=== PATIENT | male | born 1995 | race Hispanic/Latino ===

== ENCOUNTER 2019-10-07 20:55 | Emergency (ER) | payer MEDICAID ==
[2019-10-07 22:11] VITALS: BP 123/58
--- NOTE | 2019-10-07 23:12 | XRay Report ---
LEFT SHOULDER, 3 VIEWS 10/07/2019 INDICATION / CLINICAL INFORMATION: Left shoulder pain and swelling. COMPARISON: None available. FINDINGS: No fracture or dislocation. Soft tissue calcification is seen in the area of the biceps tendon. Signer Name: Khanh Hart MD Signed: 10/07/2019 11:07 PM Workstation Name: [id number]
[2019-10-08] MEDS ORDERED: IBUPROFEN 400 MG TAB PO ONE (00:31)
[2019-10-08] MEDS ORDERED: ACETAMINOPHEN 500 MG TAB PO ONE (00:31)
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
== END 2019-10-08 01:05 | disposition home or self-care (01) ==
LOC: ED 20:55
DX: S43.402A Unspecified sprain of left shoulder joint, initial encounter (principal); F17.200 Nicotine dependence, unspecified, uncomplicated; F12.10 Cannabis abuse, uncomplicated; V19.9XXA Pedal cyclist (driver) (passenger) injured in unspecified traffic accident, initial encounter; Y93.89 Activity, other specified; Y92.89 Other specified places as the place of occurrence of the external cause; Y99.8 Other external cause status
CPT/HCPCS: 99283

== ENCOUNTER 2019-11-06 22:16 | Emergency (ER) | payer MEDICAID ==
[2019-11-06 23:47] LABS: Basophils # (Auto) 0.1 K/mm3 (0.0-0.1); Basophils % (Auto) 0.6 % (0.0-1.8); Eosinophils # (Auto) 0.2 K/mm3 (0.0-0.4); Eosinophils % (Auto) 0.9 % (0.0-4.3); Hemoglobin 14.4 gm/dl (11.8-15.2); Lymphocytes # (Auto) 2.8 K/mm3 (1.2-5.4); Lymphocytes % (Auto) 16.5 % (13.4-35.0); Mean Corpuscular HGB Conc 34 % (32-34); Mean Corpuscular Volume 88 fl (84-94); Monocytes # (Auto) 1.6 K/mm3 (0.0-0.8); Monocytes % (Auto) 9.6 % (0.0-7.3); Platelet Count 363 K/mm3 (140-440); Red Blood Count 4.77 M/mm3 (3.65-5.03); Red Cell Distribution Width 14.6 % (13.2-15.2)
[2019-11-06 23:58] LABS: Alanine Aminotransferase 9 units/L (7-56); Albumin 3.6 g/dL (3.9-5); BUN/Creatinine Ratio 10; Blood Urea Nitrogen 10 mg/dL (9-20); Calcium 9.2 mg/dL (8.4-10.2); Hemolysis Index 30
[2019-11-07] MEDS ORDERED: KETOROLAC 30 MG/1 ML INJ IV ONE (00:35)
[2019-11-07] MEDS ORDERED: dexAMETHasone 20 MG/5 ML VIAL IV ONE (00:35)
[2019-11-07] MEDS ORDERED: SODIUM CHLORIDE 0.9% 1000 ML 1,000 ML IV ONE (00:36)
--- NOTE | 2019-11-07 02:27 | Cat Scan Report ---
CT NECK WITH INTRAVENOUS CONTRAST AND MULTIPLANAR RECONSTRUCTION CLINICAL HISTORY: Sore throat, difficulty swallowing TECHNIQUE: 3.75 mm thick contiguous axial scans were obtained from the skull base down to the aortic arch during intravenous contrast administration. In addition to evaluation of axial source images sagittal and c oronal multiplanar reconstructions were produced and reviewed for this report. Contrast dose report: Omnipaque 300: 100 mL administered intravenously. FINDINGS: There is asymmetrical enlargement of the left palatine tonsil. Subtle areas of decreased attenuation are seen within the tonsil. Possibility of phlegmon versus early tonsillar abscess cannot be excluded . There is mild rightward deviation of the airway in this location. The caliber of the airway remains adequate at this time. No additional abnormalities are seen along the course of the airway. Hypophar ynx, larynx and visualized portions of the subglottic airway all have an unremarkable appearance. Reactive lymph nodes are demonstrated in level 2 bilaterally, left larger than right. No abnormalities are seen in evaluation of the oral cavity and tongue. The floor the mouth has a norm al appearance. The parotid and submandibular salivary glands have a normal appearance. Evaluation of the nasal cavity reveals no abnormality. The visualized paranasal sinuses are free from inflammatory mucosal disease. Portions of the ethmoid air cells and the entirety of the frontal sinu ses are excluded. Evaluation of the visualized portions of the orbits reveals no abnormality. The thyroid gland is normal in size and homogeneous in attenuation. No focal thyroid lesions are iden tified. Evaluation of the cervical spine reveals no significant abnormality. Normal alignment is maintained. No significant degenerative changes are identified. Evaluation of the lung apices reveals no abnormality. There is no indication of lung nodule or infilt rate. The visualized portions of the superior mediastinum have an unremarkable appearance. Enhancement of normal vascular structures is demonstrated. No areas of abnormal contrast enhancement are identified. IMPRESSION: 1. Asymmetrical enlargement of the left palatine tonsil where phlegmon versus early tonsillar abscess is suspected. 2. Reactive lymphadenopathy is demonstrated involving level [address] All [address] imaging studies performed at this facility utilize dose modulation, iterative reconstruction o r weight based dosing, if appropriate, to obtain the lowest achievable radiation dose. Signer Name: Kirk Barber MD Signed: 11/07/2019 2:23 AM Workstation Name: [id number]
--- NOTE | 2019-11-07 03:22 | Emergency Department Report ---
ED General Adult HPI - General Chief complaint: Sore Throat Stated complaint: SORE THROAT Source: patient Mode of arrival: Ambulatory Limitations: No Limitations - History of Present Illness Initial comments: Patient is a 24-year-old white male with a history of bipolar disorder and ADHD who presents to the ED with complaint of acute onset persistent severe sore throat with dysphagia, diffuse body aches and pains, headache, chills and fever for the last 3 days worse in the last 24 hours. Patient states that the sore throat is worse with any swallowing. Patient denies dizziness, syncope, dental pain, nasal and sinus congestion, cough, chest pain or shortness of breath, n ausea and vomiting or diarrhea and abdominal pain. Patient states that no one else at home is had similar symptoms. MD Complaint: sore throat; dysphagia -: Sudden, days(s) (3) Location: mouth Radiation: non-radiation Severity scale (0 -10): 6 Quality: aching, sharp Consistency: constant Improves with: none Worsens with: eating Associated Symptoms: denies other symptoms. denies: confusion, chest pain, cough, diaphoresis, fever/chills, headaches, loss of appetite, malaise, nausea/vomiting, rash, seizure, shortness of breath, syncope, weakness Treatments Prior to Arrival: NSAID - Related Data Home Medications Medication Instructions Recorded Confirmed Last Taken Divalproex Dr [Depakote] 500 mg PO BID 07/07/13 12/30/13 09/03/15 OXcarbazepine [Trileptal] 300 mg PO BID 12/30/13 12/30/13 09/03/15 QUEtiapine [SEROquel] 200 mg PO HS 09/03/15 09/03/15 09/02/15 Quetiapine Fumarate [Seroquel] 100 mg PO DAILY 09/03/15 09/03/15 09/03/15 Previous Rx's Medication Instructions Recorded Last Taken Type Acetaminophen/Codeine [Tylenol #3] 1 tab PO Q6H PRN #20 tab 01/03/16 Unknown Rx Ibuprofen [Motrin] 600 mg PO Q8H PRN #50 tablet 01/03/16 Unknown Rx cephALEXin [Keflex] 500 mg PO Q6HR #40 capsule 01/03/16 Unknown Rx Cyclobenzaprine [Flexeril] 10 mg PO Q8H PRN #21 tablet 10/08/19 Unknown Rx Clindamycin [Clindamycin CAP] 300 mg PO Q6HR #80 capsule 11/07/19 Unknown Rx Ibuprofen [Motrin 600 MG tab] 600 mg PO Q8H PRN #30 tablet 11/07/19 Unknown Rx Lidocaine Viscous 2% 10 ml PO Q6H PRN #120 ml 11/07/19 Unknown Rx Ondansetron [Zofran Odt] 4 mg PO Q6HR PRN #15 tab.rapdis 11/07/19 Unknown Rx predniSONE [Deltasone] 40 mg PO QDAY #12 tab 11/07/19 Unknown Rx Allergies Allergy/AdvReac Type Severity Reaction Status Date / Time No Known Allergies Allergy Unverified 07/07/13 01:58 ED Review of Systems ROS: Stated complaint: SORE THROAT Other details as noted in HPI Constitutional: chills, fever, malaise Eyes: denies: eye pain, eye discharge, vision change ENT: throat pain, other (Dysphagia). denies: ear pain Respiratory: denies: cough, shortness of breath, wheezing Cardiovascular: denies: chest pain, palpitations Endocrine: no symptoms reported Gastrointestinal: denies: abdominal pain, nausea, diarrhea Genitourinary: denies: urgency, dysuria Musculoskeletal: denies: back pain, joint swelling, arthralgia Skin: denies: rash, lesions Neurological: headache. denies: weakness, paresthesias Psychiatric: denies: anxiety, depression Hematological/Lymphatic: denies: easy bleeding, easy bruising ED Past Medical Hx - Past Medical History Hx Psychiatric Treatment: Yes (BIPOLAR) Additional medical history: ADHD/BIPOLAR - Surgical History Past Surgical History?: No - Social History Smoking Status: Current Every Day Smoker Substance Use Type: Marijuana - Medications Home Medications: Home Medications Medication Instructions Recorded Confirmed Last Taken Type Divalproex Dr [Depakote] 500 mg PO BID 07/07/13 12/30/13 09/03/15 History OXcarbazepine [Trileptal] 300 mg PO BID 12/30/13 12/30/13 09/03/15 History QUEtiapine [SEROquel] 200 mg PO HS 09/03/15 09/03/15 09/02/15 History Quetiapine Fumarate [Seroquel] 100 mg PO DAILY 09/03/15 09/03/1516 History Acetaminophen/Codeine [Tylenol #3] 1 tab PO Q6H PRN #20 tab 01/03/16 Unknown Rx Ibuprofen [Motrin] 600 mg PO Q8H PRN #50 tablet 01/03/16 Unknown Rx cephALEXin [Keflex] 500 mg PO Q6HR #40 capsule 01/03/16 Unknown Rx Cyclobenzaprine [Flexeril] 10 mg PO Q8H PRN #21 tablet 10/08/19 Unknown Rx Clindamycin [Clindamycin CAP] 300 mg PO Q6HR #80 capsule 11/07/19 Unknown Rx Ibuprofen [Motrin 600 MG tab] 600 mg PO Q8H PRN #30 tablet 11/07/19 Unknown Rx Lidocaine Viscous 2% 10 ml PO Q6H PRN #120 ml 11/07/19 Unknown Rx Ondansetron [Zofran Odt] 4 mg PO Q6HR PRN #15 tab.rapdis 11/07/19 Unknown Rx predniSONE [Deltasone] 40 mg PO QDAY #12 tab 11/07/19 Unknown Rx ED Physical Exam - General Limitations: No Limitations General appearance: alert, in no apparent distress - Head Head exam: Present: atraumatic, normocephalic, normal inspection - Eye Eye exam: Present: normal appearance, PERRL, EOMI Pupils: Present: normal accommodation - ENT ENT exam: Present: mucous membranes moist, TM's normal bilaterally, normal external ear exam, other (Significantly swollen, erythematous left tonsil with thick white exudates) - Neck Neck exam: Present: normal inspection, full ROM, lymphadenopathy - Respiratory Respiratory exam: Present: normal lung sounds bilaterally. Absent: respiratory distress, wheezes, rales, stridor, chest wall tenderness, accessory muscle use, decreased breath sounds - Cardiovascular Cardiovascular Exam: Present: normal rhythm, tachycardia, normal heart sounds. Absent: systolic murmur, diastolic murmur, rubs, gallop - GI/Abdominal GI/Abdominal exam: Present: soft, normal bowel sounds. Absent: tenderness, guarding, rebound, hyperactive bowel sounds - Extremities Exam Extremities exam: Present: normal inspection, full ROM, normal capillary refill. Absent: pedal edema - Back Exam Back exam: Present: normal inspection, full ROM. Absent: tenderness, CVA tenderness (R), CVA tenderness (L), muscle spasm, paraspinal tenderness - Neurological Exam Neurological exam: Present: alert, oriented X3, CN II-XII intact, normal gait, reflexes normal - Psychiatric Psychiatric exam: Present: normal affect, normal mood - Skin Skin exam: Present: warm, dry, intact, normal color. Absent: rash ED Course Vital Signs 11/06/19 11/07/19 22:33 03:56 Temperature 100.3 F H 98.0 F Pulse Rate 101 H 68 Respiratory 18 18 Rate Blood Pressure 141/70 Blood Pressure 108/57 [Right] O2 Sat by Pulse 96 97 Oximetry ED Medical Decision Making - Lab Data Result diagrams: 11/06/19 23:22 11/06/19 23:22 - Radiology Data Radiology results: report reviewed, image reviewed Findings [facility] [address] [id number] Cat Scan Report Signed Patient: CHULA YATES MR#: [id number] : 1995 Acct:[id number] Age/Sex: 24 / M ADM Date: 11/06/19 Loc: ED Attending Dr: Ordering Physician: JADA PANDA Date of Service: 11/06/19 Procedure(s): CT neck w con Accession Number(s): [id number] cc: JADA PANDA CT NECK WITH INTRAVENOUS CONTRAST AND MULTIPLANAR RECONSTRUCTION CLINICAL HISTORY: Sore throat, difficulty swallowing TECHNIQUE: 3.75 mm thick contiguous axial scans were obtained from the skull base down to the aortic arch during intravenous contrast administration. In addition to evaluation of axial source images sagittal and coronal multiplanar reconstructions were produced and reviewed for this report. Contrast dose report: Omnipaque 300: 100 mL administered intravenously. FINDINGS: There is asymmetrical enlargement of the left palatine tonsil. Subtle areas of decreased attenuation are seen within the tonsil. Possibility of phlegmon versus early tonsillar abscess cannot be excluded. There is mild rightward deviation of the airway in this location. The caliber of the airway remains adequate at this time. No additional abnormalities are seen along the course of the airway. Hypopharynx, larynx and visualized portions of the subglottic airway all have an unremarkable appearance. Reactive lymph nodes are demonstrated in level 2 bilaterally, left larger than right. No abnormalities are seen in evaluation of the oral cavity and tongue. The floor the mouth has a normal appearance. The parotid and submandibular salivary glands have a normal appearance. Evaluation of the nasal cavity reveals no abnormality. The visualized paranasal sinuses are free from inflammatory mucosal disease. Portions of the ethmoid air cells and the entirety of the frontal sinuses are excluded. Evaluation of the visualized portions of the orbits reveals no abnormality. The thyroid gland is normal in size and homogeneous in attenuation. No focal thyroid lesions are identified. Evaluation of the cervical spine reveals no significant abnormality. Normal alignment is maintained. No significant degenerative changes are identified. Evaluation of the lung apices reveals no abnormality. There is no indication of lung nodule or infiltrate. The visualized portions of the superior mediastinum have an unremarkable appearance. Enhancement of normal vascular structures is demonstrated. No areas of abnormal contrast enhancement are identified. IMPRESSION: 1. Asymmetrical enlargement of the left palatine tonsil where phlegmon versus early tonsillar abscess is suspected. 2. Reactive lymphadenopathy is demonstrated involving level [address]. All CT imaging studies performed at this facility utilize dose modulation, iterative reconstruction or weight based dosing, if appropriate, to obtain the lowest achievable radiation dose. Signer Name: Kirk Barber MD Signed: 11/07/2019 2:23 AM Workstation Name: [id number] Transcribed By: Dictated By: Kirk Barber MD Electronically Authenticated By: Kirk Barber MD Signed Date/Time: 11/07/19222 DD/ 4 TD/TT: - Medical Decision Making This is a 24-year-old white male with a history of bipolar disorder and ADHD who presents to the ED with complaint of acute onset persistent severe sore throat with dysphagia, diffuse body aches and pains, headache, chills and fever for the last 3 days worse in the last 24 hours. Patient states that the sore throat is worse with any swallowing. In the ED, patient is alert and oriented x3 and is not in distress but tachycardic and febrile in triage. The patient's oxygen saturation in room air was 96%. Patient was treated for pain and also given Decadron 10 mg IV, Toradol 30 mg IV and clindamycin 900 mg IV. Patient also received normal saline 1 L IV bolus x1. Lab test results were reviewed and showed acute leukocytosis of 16,800 and a negative strep test. CT soft tissue neck with IV contrast showed asymmetrical enlargement of the left palatine tonsil where phlegmon versus early tonsillar abscess is suspected. It also showed reactive lymphadenopathy involving level 2 lymph nodes bilaterally. Patient case was discussed with the ED attending physician Dr. Delvalle who a dvised that the patient be treated outpatient since the patient's airway is not compromised and be given a referral to the local ENT physician for follow-up. On reevaluation, patient's fever and tachycardia resolved, patient is hemodynamically stable and his airway is patent and not compromised. Patient stated that he was feeling much better. Patient was discharged home on pain medications and antibiotics and was referred to the ENT physician Dr. Hairston for follow-up in 2 days for reevaluation. Patient was otherwise advised return to ED immediately if symptoms get worse. - Differential Diagnosis strep pharyngitis; peritonsillar abscess; tonsillitis Critical care attestation.: If time is entered above; I have spent that time in minutes in the direct care of this critically ill patient, excluding procedure time. ED Disposition Clinical Impression: Fever and chills, Acute bacterial tonsillitis Acute pharyngitis Qualifiers: Pharyngitis/tonsillitis etiology: other specified organisms Qualified Code(s): J02.8 - Acute pharyngitis due to other specified organisms Disposition: DC-01 TO HOME OR SELFCARE Is pt being admited?: No Does the pt Need Aspirin: No Condition: Stable Instructions: Pharyngitis (ED), Tonsillitis (ED) Additional Instructions: Take medication with food, drink plenty of fluids and follow-up with your primary care physician in 7 to 10 days for reevaluation. Ensure that you follow-up with the ENT physician in 2 days for reevaluation. Return to the ED immediately if symptoms get worse. Prescriptions: Clindamycin [Clindamycin CAP] 300 mg PO Q6HR #80 capsule predniSONE [Deltasone] 40 mg PO QDAY #12 tab Lidocaine Viscous 2% 10 ml PO Q6H PRN #120 ml PRN Reason: Pain , Severe (7-10) Ibuprofen [Motrin 600 MG tab] 600 mg PO Q8H PRN #30 tablet PRN Reason: Pain Ondansetron [Zofran Odt] 4 mg PO Q6HR PRN #15 tab.rapdis PRN Reason: Nausea Referrals: CECELIA HAIRSTON MD [Staff Physician] - 2-3 Days Time of Disposition: 03:23 Print Language: RUSSIAN
== END 2019-11-07 03:57 | disposition home or self-care (01) ==
LOC: ED 22:16
DX: J20.8 Acute bronchitis due to other specified organisms (principal); J03.80 Acute tonsillitis due to other specified organisms; B96.89 Other specified bacterial agents as the cause of diseases classified elsewhere; F17.200 Nicotine dependence, unspecified, uncomplicated; F12.10 Cannabis abuse, uncomplicated; F20.89 Other schizophrenia; F31.9 Bipolar disorder, unspecified; F90.8 Attention-deficit hyperactivity disorder, other type; Z79.899 Other long term (current) drug therapy
CPT/HCPCS: 36415; 70491; 80053; 85025; 87116; 87430; 96365; 96375; 99284; J1100; J1885; J7030; Q9967

== ENCOUNTER 2022-01-17 21:44 | Emergency (ER) | payer MEDICAID ==
[2022-01-17 22:28] VITALS: BP 131/85
== END 2022-01-18 14:01 | disposition left against medical advice (07) ==
LOC: ED 21:44
DX: H92.02 Otalgia, left ear (principal); Z53.21 Procedure and treatment not carried out due to patient leaving prior to being seen by health care provider

== ENCOUNTER 2022-01-18 13:20 | Emergency (ER) | payer MEDICAID ==
--- NOTE | 2022-01-18 14:09 | Emergency Department Report ---
ED ENT HPI - General Chief complaint: Earache Stated complaint: EAR PAIN Time Seen by Provider: 01/18/22 13:44 Source: patient Mode of arrival: Ambulatory Limitations: No Limitations - History of Present Illness Initial comments: This is a 26-year-old male brought by mother nontoxic, well nourished in appearance, no acute signs of distress presents to the ED with c/o of left earache. Patient denies any ear drainage. Patient denies any trauma to the area. Patient denies any mastoid tenderness or tragus tenderness. Patient denies hearing decrease or hearing changes. Patient denies any fever, chills, nausea, vomiting, chest pain, short of breath, headache or stiff neck. Patient denies any drug allergies or significant past medical history. MD complaint: ear pain -: days(s) Location: L ear Severity: mild Severity scale (0 -10): 8 Quality: aching Consistency: constant Improves with: none Worsens with: none Associated Symptoms: denies: fever, cough, gum swelling, toothache, pain with swallowing, sore throat, tinnitus, hearing loss, discharge from ear, rhinorrhea - Related Data Home Medications Medication Instructions Recorded Confirmed Last Taken Divalproex Dr [Depakote] 500 mg PO BID 07/07/13 12/30/13 09/03/15 OXcarbazepine [Trileptal] 300 mg PO BID 12/30/13 12/30/13 09/03/15 QUEtiapine [SEROquel] 200 mg PO HS 09/03/15 09/03/15 09/02/15 Quetiapine Fumarate [Seroquel] 100 mg PO DAILY 09/03/15 09/03/15 09/03/15 Previous Rx's Medication Instructions Recorded Last Taken Type Acetaminophen/Codeine [Tylenol #3] 1 tab PO Q6H PRN #20 tab 01/03/16 Unknown Rx Ibuprofen [Motrin] 600 mg PO Q8H PRN #50 tablet 01/03/16 Unknown Rx cephALEXin [Keflex] 500 mg PO Q6HR #40 capsule 01/03/16 Unknown Rx Cyclobenzaprine [Flexeril] 10 mg PO Q8H PRN #21 tablet 10/08/19 Unknown Rx Clindamycin [Clindamycin CAP] 300 mg PO Q6HR #80 capsule 11/07/19 Unknown Rx Ibuprofen [Motrin 600 MG tab] 600 mg PO Q8H PRN #30 tablet 11/07/19 Unknown Rx Lidocaine Viscous 2% 10 ml PO Q6H PRN #120 ml 11/07/19 Unknown Rx Ondansetron [Zofran Odt] 4 mg PO Q6HR PRN #15 tab.rapdis 11/07/19 Unknown Rx predniSONE [Deltasone] 40 mg PO QDAY #12 tab 11/07/19 Unknown Rx Amoxicillin [Amoxicillin TAB] 875 mg PO BID #20 tab 01/18/22 Unknown Rx Allergies Allergy/AdvReac Type Severity Reaction Status Date / Time No Known Allergies Allergy Verified 01/18/22 13:23 ED Dental HPI - General Chief complaint: Earache Stated complaint: EAR PAIN Time Seen by Provider: 01/18/22 13:44 Source: patient Mode of arrival: Ambulatory Limitations: No Limitations - Related Data Home Medications Medication Instructions Recorded Confirmed Last Taken Divalproex Dr [Depakote] 500 mg PO BID 07/07/13 12/30/13 09/03/15 OXcarbazepine [Trileptal] 300 mg PO BID 12/30/13 12/30/13 09/03/15 QUEtiapine [SEROquel] 200 mg PO HS 09/03/15 09/03/15 09/02/15 Quetiapine Fumarate [Seroquel] 100 mg PO DAILY 09/03/15 09/03/15 09/03/15 Previous Rx's Medication Instructions Recorded Last Taken Type Acetaminophen/Codeine [Tylenol #3] 1 tab PO Q6H PRN #20 tab 01/03/16 Unknown Rx Ibuprofen [Motrin] 600 mg PO Q8H PRN #50 tablet 01/03/16 Unknown Rx cephALEXin [Keflex] 500 mg PO Q6HR #40 capsule 01/03/16 Unknown Rx Cyclobenzaprine [Flexeril] 10 mg PO Q8H PRN #21 tablet 10/08/19 Unknown Rx Clindamycin [Clindamycin CAP] 300 mg PO Q6HR #80 capsule 11/07/19 Unknown Rx Ibuprofen [Motrin 600 MG tab] 600 mg PO Q8H PRN #30 tablet 11/07/19 Unknown Rx Lidocaine Viscous 2% 10 ml PO Q6H PRN #120 ml 11/07/19 Unknown Rx Ondansetron [Zofran Odt] 4 mg PO Q6HR PRN #15 tab.rapdis 11/07/19 Unknown Rx predniSONE [Deltasone] 40 mg PO QDAY #12 tab 11/07/19 Unknown Rx Amoxicillin [Amoxicillin TAB] 875 mg PO BID #20 tab 01/18/22 Unknown Rx Allergies Allergy/AdvReac Type Severity Reaction Status Date / Time No Known Allergies Allergy Verified 01/18/22 13:23 ED Review of Systems ROS: Stated complaint: EAR PAIN Other details as noted in HPI Comment: All other systems reviewed and negative Constitutional: denies: chills, fever Eyes: denies: eye pain, eye discharge, vision change ENT: ear pain. denies: throat pain Respiratory: denies: cough, shortness of breath, wheezing Cardiovascular: denies: chest pain, palpitations Endocrine: no symptoms reported Gastrointestinal: denies: abdominal pain, nausea, diarrhea Genitourinary: denies: urgency, dysuria Musculoskeletal: denies: back pain, joint swelling, arthralgia Skin: denies: rash, lesions Neurological: denies: headache, weakness, paresthesias Psychiatric: denies: anxiety, depression Hematological/Lymphatic: denies: easy bleeding, easy bruising ED Past Medical Hx - Past Medical History Hx Psychiatric Treatment: Yes (BIPOLAR, ADHD) Additional medical history: ADHD/BIPOLAR - Social History Smoking Status: Current Every Day Smoker Substance Use Type: Marijuana - Medications Home Medications: Home Medications Medication Instructions Recorded Confirmed Last Taken Type Divalproex Dr [Depakote] 500 mg PO BID 07/07/13 12/30/13 09/03/15 History OXcarbazepine [Trileptal] 300 mg PO BID 12/30/13 12/30/13 09/03/15 History QUEtiapine [SEROquel] 200 mg PO HS 09/03/15 09/03/15 09/02/15 History Quetiapine Fumarate [Seroquel] 100 mg PO DAILY 09/03/15 09/03/15 09/03/15 History Acetaminophen/Codeine [Tylenol #3] 1 tab PO Q6H PRN #20 tab 01/03/16 Unknown Rx Ibuprofen [Motrin] 600 mg PO Q8H PRN #50 tablet 01/03/16 Unknown Rx cephALEXin [Keflex] 500 mg PO Q6HR #40 capsule 01/03/16 Unknown Rx Cyclobenzaprine [Flexeril] 10 mg PO Q8H PRN #21 tablet 10/08/19 Unknown Rx Clindamycin [Clindamycin CAP] 300 mg PO Q6HR #80 capsule 11/07/19 Unknown Rx Ibuprofen [Motrin 600 MG tab] 600 mg PO Q8H PRN #30 tablet 11/07/19 Unknown Rx Lidocaine Viscous 2% 10 ml PO Q6H PRN #120 ml 11/07/19 Unknown Rx Ondansetron [Zofran Odt] 4 mg PO Q6HR PRN #15 tab.rapdis 11/07/19 Unknown Rx predniSONE [Deltasone] 40 mg PO QDAY #12 tab 11/07/19 Unknown Rx Amoxicillin [Amoxicillin TAB] 875 mg PO BID #20 tab 01/18/22 Unknown Rx ED Physical Exam - General Limitations: No Limitations General appearance: alert, in no apparent distress - Head Head exam: Present: atraumatic, normocephalic - Eye Eye exam: Present: normal appearance - Expanded ENT Exam Expanded Ear exam: Present: normal external inspection TM/Canal exam: Erythema: Left TM, Bulging: Left TM Mouth exam: Present: normal external inspection, tongue normal. Absent: drooling, trismus, muffled voice Teeth exam: Present: normal inspection Throat exam: Positive: normal inspection. Negative: tonsillar erythema, tonsillomegaly, tonsillar exudate, R peritonsillar mass, L peritonsillar mass - Neck Neck exam: Present: normal inspection, full ROM. Absent: tenderness, meningismus, lymphadenopathy - Respiratory Respiratory exam: Absent: respiratory distress - Cardiovascular Cardiovascular Exam: Present: regular rate - Extremities Exam Extremities exam: Present: full ROM - Back Exam Back exam: Present: full ROM - Neurological Exam Neurological exam: Present: alert, oriented X3, normal gait - Psychiatric Psychiatric exam: Present: normal affect, normal mood - Skin Skin exam: Present: warm, dry, intact, normal color. Absent: rash ED Course Vital Signs 01/18/22 13:22 Temperature 98.8 F Pulse Rate 85 Respiratory 18 Rate Blood Pressure 128/74 [Left] O2 Sat by Pulse 97 Oximetry - Reevaluation(s) Reevaluation #1: 01/18/22 14:02 Patient is speaking in full sentences with no signs of distress noted. ED Medical Decision Making - Medical Decision Making 26-year-old male that presents with otitis media. Patient stable and was examined by me. I will discharge patient with amoxicillin. Patient was instructed to follow-up with a primary care doctor in 3-5 days or if symptoms worsen and continue return to emergency room as soon as possible. At time of discharge, the patient does not seem toxic or ill in appearance. No acute signs of distress noted. Patient agrees to discharge treatment plan of care. No further questions noted by the patient. Critical care attestation.: If time is entered above; I have spent that time in minutes in the direct care of this critically ill patient, excluding procedure time. ED Disposition Clinical Impression: Left otitis media Qualifiers: Otitis media type: unspecified Qualified Code(s): H66.92 - Otitis media, unspecified, left ear Disposition: 01 HOME / SELF CARE / HOMELESS Is pt being admited?: No Does the pt Need Aspirin: No Condition: Stable Instructions: Otitis Media, Adult Additional Instructions: Follow-up with a primary care doctor in 3-5 days or if symptoms worsen and continue return to emergency room as soon as possible. Prescriptions: Amoxicillin [Amoxicillin TAB] 875 mg PO BID #20 tab Referrals: PRIMARY MD RAN [Referring] - 3-5 Days NEIL GOODMAN MD [Staff Physician] - 3-5 Days Time of Disposition: 14:11
[2022-01-18 14:18] VITALS: BP 130/80
== END 2022-01-18 14:17 | disposition home or self-care (01) ==
LOC: ED 13:20
DX: H66.92 Otitis media, unspecified, left ear (principal); F17.200 Nicotine dependence, unspecified, uncomplicated; F12.90 Cannabis use, unspecified, uncomplicated
CPT/HCPCS: 99282